=== PATIENT | female | born 1990 | race Caucasian/White ===

== ENCOUNTER 2017-02-01 13:53 | Emergency (ER) | payer MEDICAID ==
[~2017-02-01] VITALS: Ht 157.5 cm; Wt 78.9 kg
[2017-02-01 14:22] VITALS: BP 108/61
--- NOTE | 2017-02-01 15:42 | NUR ---
Patient ambulated to bed 6.
--- NOTE | 2017-02-01 15:54 | NUR ---
PT PRESENTS TO ER W/C/O SOB SINCE THIS AM. HX ASTHMA AND DM;DENIES CP/N/MIGUEL PAIN AT THIS MOMENT;STEADY GAIT;AAOX4;NO ACUTE DISTRESS NOTED;HOB ELEVATED;SAFETY MEASURES DONE;ALL MONITORS IN PLACED.POSITIONED FOR COMFORT.
[2017-02-01] MEDS ORDERED: ALBUTEROL SULFATE/IPRATROPIU 3 ML SOL IH ONE (16:00)
--- NOTE | 2017-02-01 16:03 | NUR ---
DR KABA AT BEDSIDE.
--- NOTE | 2017-02-01 16:48 | NUR ---
PT VERBALIZES RELIEF OF SOB;WILL CONTINUE TO MONITOR PT.
--- NOTE | 2017-02-01 16:56 | NUR ---
Patient discharged with v/s stable. Written and verbal after care instructions given and explained. Patient alert, oriented and verbalized understanding of instructions. Ambulatory with steady gait. All questions addressed prior to discharge. ID band removed. Patient advised to follow up with PMD. Rx of PROAIR HFA given. Patient educated on indication of medication including possible reaction and side effects. Opportunity to ask questions provided and answered.
[2017-02-01 16:57] VITALS: BP 104/67
== END 2017-02-01 16:56 | disposition home or self-care (01) ==
LOC: MED 13:53
DX: J45.901 Unspecified asthma with (acute) exacerbation (principal); E11.9 Type 2 diabetes mellitus without complications
CPT/HCPCS: 71010; 94640; 99283; J7620

== ENCOUNTER 2018-05-04 22:30 | Emergency (ER) | payer MEDICAID ==
[~2018-05-04] VITALS: Ht 152.4 cm; Wt 79.8 kg
[2018-05-04 22:30] VITALS: BP 100/63
[2018-05-04] MEDS ORDERED: ALBUTEROL SULFATE/IPRATROPIU 3 ML SOL IH ONE (23:30)
[2018-05-04] MEDS ORDERED: ALBUTEROL 0.083% 2.5 MG/3 ML NEBU INH ONE (23:30)
[2018-05-04] MEDS ORDERED: predniSONE 20 MG TAB PO ONE (23:30)
[2018-05-05 00:30] VITALS: BP 107/71
== END 2018-05-05 00:26 | disposition home or self-care (01) ==
LOC: MED 22:30
DX: J45.901 Unspecified asthma with (acute) exacerbation (principal); E11.9 Type 2 diabetes mellitus without complications
CPT/HCPCS: 81002; 81025; 94640; 99283; J7512; J7613; J7620

== ENCOUNTER 2018-06-12 01:22 | Emergency (ER) | payer MEDICAID ==
[~2018-06-12] VITALS: Ht 157.5 cm; Wt 79.4 kg
[2018-06-12 01:25] VITALS: BP 117/60
--- NOTE | 2018-06-12 01:28 | NUR ---
TO BED # 9 AMB, REPORT GIVEN TO DEMAR MAHAJAN
--- NOTE | 2018-06-12 01:50 | NUR ---
27/F CAME IN ED, C/O SOB/DYSPNEA, X1 NIGHT. PT REPORTS PRODUCTIVE COUGH. LUNG SOUNDS WHEEZE BL. SPO2 96% ON RA, RR 15 EVEN, DEEP, SLIGHTLY LABORED. PT REPORTS THAT SHE RAN OUT OF RX. BLOOD SUGAR 108. VSS, PLACED ON MONITOR. ER MD MADE AWARE. HX ASTHMA, DM
[2018-06-12] MEDS ORDERED: IPRATROPIUM 0.02% 0.5 MG/2.5 ML NEBU INH ONE (02:15)
[2018-06-12] MEDS ORDERED: predniSONE 20 MG TAB PO ONE (02:15)
[2018-06-12] MEDS ORDERED: ALBUTEROL 0.083% 2.5 MG/3 ML NEBU INH ONE (02:15)
--- NOTE | 2018-06-12 02:20 | NUR ---
Respiratory Therapist at bedside for respiratory intervention.
--- NOTE | 2018-06-12 03:05 | NUR ---
Dr. Pruitt evaluating patient at bedside.
[2018-06-12 03:55] VITALS: BP 103/68
--- NOTE | 2018-06-12 03:55 | NUR ---
Patient discharged with v/s stable. Written and verbal after care instructions given and explained. Patient alert, oriented and verbalized understanding of instructions. Ambulatory with steady gait. All questions addressed prior to discharge. ID band removed. Patient advised to follow up with PMD. Rx of ALBUTEROL, PREDNISONE given. Patient educated on indication of medication including possible reaction and side effects. Opportunity to ask questions provided and answered.
== END 2018-06-12 03:55 | disposition home or self-care (01) ==
LOC: MED 01:22
DX: J45.901 Unspecified asthma with (acute) exacerbation (principal); E11.9 Type 2 diabetes mellitus without complications
CPT/HCPCS: 82948; 94640; 99283; J7512; J7613; J7644

== ENCOUNTER 2018-08-11 20:28 | Emergency (ER) | payer MEDICAID ==
[~2018-08-11] VITALS: Ht 157.5 cm; Wt 83.9 kg
[2018-08-11 20:29] VITALS: BP 109/67
--- NOTE | 2018-08-11 20:32 | NUR ---
PT AMBULATORY TO ER LOBBY W/ STEADY GAIT IN STABLE CONDITION.
--- NOTE | 2018-08-11 20:52 | NUR ---
VISUAL ACCUITY RIGHT EYE 20/25 LEFT EYE 20/20 BOTH 20/20
--- NOTE | 2018-08-11 21:51 | NUR ---
PT AMBULATED TO BED 2
--- NOTE | 2018-08-11 21:51 | NUR ---
PATIENT PRESENTS TO ED WITH C/O RIGHT EYE REDNESS/IRRITATION X 1 DAY. PT DENIES N/V/D; SKIN IS PINK/WARM/DRY; AAOX4 WITH EVEN AND STEADY GAIT; LUNGS CLEAR BL; HR EVEN AND REGULAR; PATIENT STATES PAIN OF 5/10 AT THIS TIME; VSS; PATIENT POSITIONED FOR COMFORT; HOB ELEVATED; BEDRAILS UP X2; BED DOWN. ER MD MADE AWARE OF PT STATUS.
--- NOTE | 2018-08-11 23:59 | NUR ---
DR RAY AT BEDSIDE TO EVALUATE PT
--- NOTE | 2018-08-12 00:24 | NUR ---
Patient appears to be resting comfortably in bed. Vital Signs within normal limits. Respirations even and unlabored.
--- NOTE | 2018-08-12 00:25 | NUR ---
Patient discharged with v/s stable. Written and verbal after care instructions given and explained. Patient alert, oriented and verbalized understanding of instructions. Ambulatory with steady gait. All questions addressed prior to discharge. ID band removed. Patient advised to follow up with PMD. Rx of GENTAMICIN OPTH AND TYLENOL given. Patient educated on indication of medication including possible reaction and side effects. Opportunity to ask questions provided and answered.
[2018-08-12 00:28] VITALS: BP 108/54
== END 2018-08-12 00:25 | disposition home or self-care (01) ==
LOC: MED 20:28
DX: H10.9 Unspecified conjunctivitis (principal); J45.909 Unspecified asthma, uncomplicated; E11.9 Type 2 diabetes mellitus without complications
CPT/HCPCS: 99283

== ENCOUNTER 2020-08-04 20:02 | Emergency (ER) | payer MEDICAID ==
[~2020-08-04] VITALS: Ht 157.5 cm; Wt 77.1 kg
[2020-08-04 20:09] VITALS: BP 108/68
--- NOTE | 2020-08-04 20:11 | NUR ---
To ED bed 02
[2020-08-04] MEDS ORDERED: KETOROLAC 60 MG/2 ML VIAL IM ONE (20:20)
--- NOTE | 2020-08-04 20:24 | NUR ---
PT C/O HEADACHE WITH NAUSEA AND VOMITING TODAY. DENIES ABD PAIN. STATES SHE VOMITIED 3 TIMES. DID NOT TAKE ANY MEDS FOR THE NAUSEA OR HEADACHE. AFEBRILE. SOFT NONTENDER UPON PALPATION. PT PLACED IN BED, BED IN LOWEST POSITION AND SIDERAIL UP X 1. NKA HX - DM, ASTHMA
--- NOTE | 2020-08-04 20:45 | NUR ---
PT NO LONGER HAVING ANY PAIN
[2020-08-04 21:05] VITALS: BP 108/68
--- NOTE | 2020-08-04 21:06 | NUR ---
Patient discharged with v/s stable. Written and verbal after care instructions given and explained. Patient alert, oriented and verbalized understanding of instructions. Ambulatory with steady gait. All questions addressed prior to discharge. ID band removed. Patient advised to follow up with PMD. Rx of MOTRIN AND ZOFRAN given. Patient educated on indication of medication including possible reaction and side effects. Opportunity to ask questions provided and answered.
== END 2020-08-04 21:05 | disposition home or self-care (01) ==
LOC: MED 20:02
DX: R51.9 Headache, unspecified (principal); J45.909 Unspecified asthma, uncomplicated; E11.9 Type 2 diabetes mellitus without complications; I10 Essential (primary) hypertension
CPT/HCPCS: 81002; 81025; 96372; 99283; J1885

== ENCOUNTER 2021-01-02 19:09 | Emergency (ER) | payer MEDICAID ==
[~2021-01-02] VITALS: Ht 157.5 cm; Wt 81.6 kg
[2021-01-02 19:16] VITALS: BP 126/76
--- NOTE | 2021-01-02 19:16 | NUR ---
TO BED AMBULATORY
--- NOTE | 2021-01-02 19:35 | NUR ---
30 YO F BIB FAMILY S/P FALL X1 HOUR AGO. PT DENIES LOC. + PERRLA, +2 BILAT HAND/FOOT MOVEMENT. AMBULATORY @ BEDSIDE. + CORTEZ 6/10 THROBBING. 5 CM LAC TO PARIETAL/OCCIP REGION. GURNEY LOCKED IN LOWEST POSITION. WILL UPDATE ERMD. HX: DM, HTN, ASTHMA RX: INHALER, METFORMIN, LISINOPRIL
--- NOTE | 2021-01-02 20:20 | NUR ---
ERMD @ BEDSIDE, CLEANSED WOUND WITH NS; JUAN MANUEL PLACED BY ERMD, PT TOLERATED PROCEDURE. VSS. WILL CONTINUE TO OBSERVE
--- NOTE | 2021-01-02 20:34 | NUR ---
PT TAKEN TO CT
[2021-01-02] MEDS ORDERED: ACETAMINOPHEN EXTRA STRENGTH 500 MG TAB PO ONE (21:15)
[2021-01-02] MEDS ORDERED: IBUPROFEN 600 MG TAB PO ONE (21:15)
[2021-01-02] MEDS ORDERED: ACET-2619 PO (22:13)
[2021-01-02 22:25] VITALS: BP 126/71
== END 2021-01-02 22:25 | disposition home or self-care (01) ==
LOC: MED 19:09
DX: S01.01XA Laceration without foreign body of scalp, initial encounter (principal); S16.1XXA Strain of muscle, fascia and tendon at neck level, initial encounter; J45.909 Unspecified asthma, uncomplicated; I10 Essential (primary) hypertension; E11.9 Type 2 diabetes mellitus without complications; V00.131A Fall from skateboard, initial encounter; Y93.89 Activity, other specified; Y92.89 Other specified places as the place of occurrence of the external cause; Y99.8 Other external cause status
CPT/HCPCS: 70450; 72125; 90471; 90715; 99285

== ENCOUNTER 2021-10-24 20:59 | Emergency (ER) | payer MEDICAID ==
[~2021-10-24] VITALS: Ht 157.5 cm; Wt 77.1 kg
[~2021-10-24 20:59] MED LIST: ACET-2619 PO
[2021-10-24 21:10] VITALS: BP 106/64
--- NOTE | 2021-10-24 21:13 | NUR ---
to lobby a/w bed ambulatory
[2021-10-24] MEDS ORDERED: KETOROLAC 30 MG/ML VIAL IVP ONE (22:25)
[2021-10-24] MEDS ORDERED: NACL 0.9% 1,000 ML IV ONE (22:25)
--- NOTE | 2021-10-24 22:30 | NUR ---
seen and examined by KATHERYN
[2021-10-24 23:25] LABS: BASOPHILS % (AUTO) 0.3 % (0.0-2.0); EOSINOPHILS # (AUTO) 0.1 K/uL (0-0.4); EOSINOPHILS % (AUTO) 1.1 % (0.0-4.0); HEMOGLOBIN 12.5 g/dL (12.0-16.0); LYMPHOCYTES # (AUTO) 2.3 K/uL (2.5-16.5); LYMPHOCYTES % (AUTO) 38.9 % (20.5-51.1); MEAN CORPUSCULAR HEMOGLOBIN 29 pg (27-31); MEAN CORPUSCULAR HGB CONC 34 g/dL (33-37); MEAN CORPUSCULAR VOLUME 86.6 fL (80-94); MONOCYTES # (AUTO) 0.4 K/uL (0.8-1.0); MONOCYTES % (AUTO) 6.8 % (1.7-9.3); NEUTROPHILS # (AUTO) 3.1 K/uL (1.8-7.7); NEUTROPHILS % (AUTO) 52.9 % (42.2-75.2); PLATELET COUNT (AUTO) 234 K/uL (140-450); RED BLOOD CELL COUNT(AUTO) 4.28 MIL/uL (4.20-5.40); RED CELL DISTRIBUTION WIDTH 14.2 % (11.6-13.7); WHITE BLOOD COUNT (AUTO) 5.9 K/uL (4.8-10.8)
[2021-10-24 23:55] LABS: ALBUMIN 3.3 g/dL (3.4-5.0); ANION GAP 15.3 (8-16); CARBON DIOXIDE 23.5 mmol/L (21-32); CREATININE 0.6 mg/dL (0.6-1.3); POTASSIUM 3.8 mmol/L (3.5-5.1); TOTAL BILIRUBIN 0.2 mg/dL (0.0-1.0)
[2021-10-25] MEDS ORDERED: MAGN400S60 PO (03:34)
[2021-10-25 03:38] VITALS: BP 106/64
--- NOTE | 2021-10-25 03:38 | NUR ---
Patient discharged with v/s stable. Written and verbal after care instructions given and explained. Patient alert, oriented and verbalized understanding of instructions. Ambulatory with steady gait. All questions addressed prior to discharge. ID band removed. Patient advised to follow up with PMD. Rx of milk of magnesia given. Patient educated on indication of medication including possible reaction and side effects. Opportunity to ask questions provided and answered.
--- NOTE | 2021-10-25 03:38 | NUR ---
IV removed on the right hand, catheter intact and site benign. Applied folded 4x4 gauze and tape to stop bleeding.
== END 2021-10-25 03:38 | disposition home or self-care (01) ==
LOC: MED 20:59
DX: K59.00 Constipation, unspecified (principal)
CPT/HCPCS: 36415; 80053; 81002; 81025; 85025; 96361; 96374; 99284; J1885; J7030